=== PATIENT | male | born 1975 | race Asian ===

== ENCOUNTER 2016-09-24 14:18 | Emergency (ER) | payer OTHER ==
[~2016-09-24] VITALS: Ht 177.8 cm; Wt 102.1 kg
[2016-09-24 15:20] VITALS: BP 142/88
--- NOTE | 2016-09-24 15:57 | ED SKIN/ALLERGY COMPLAINT ---
History of Present Illness General Chief Complaint: General Adult Stated Complaint: BACK PAIN CAUSED BY MOLE Source: patient Exam Limitations: no limitations Vital Signs & Intake/Output Vital Signs & Intake/Output Vital Signs Date Time Temp Pulse Resp B/P Pulse O2 O2 Flow FiO2 Ox Delivery Rate 09/24 1522 97 09/24 1520 97.0 103 18 142/88 98 Room Air 09/24 1446 98.7 108 20 160/104 96 Room Air Allergies Coded Allergies: No Known Allergies (09/24/16) Reconcile Medications No Known Home Medications Triage Note: RECEIVED 41 YO MALE PAINFUL MOLE ON LEFT UPPER BACK, HAS SINCE A CHILD BUT HURTING HIM TODAY. Triage Nurses Notes Reviewed? yes Onset: Abrupt Duration: day(s):, constant Timing: recent history Severity: moderate, severe Location: back No Modifying Factors: none HPI: 41-year-old male comes into emergency room for further evaluation of bump on his back that is getting larger and painful. Patient reports that he had a mole as she describes it for many years but recently got painful and enlarged. Denies any other associated symptoms such as fever chills denies any trauma. Denies any other associated symptoms. (MARYBETH HAJI) Past History Travel History Traveled to [place] past 21 day No Medical History Any Pertinent Medical History? see below for history Neurological: NONE EENT: NONE Cardiovascular: hypertension Respiratory: NONE Gastrointestinal: NONE Hepatic: NONE Renal: NONE Musculoskeletal: NONE Psychiatric: NONE Endocrine: NONE Blood Disorders: NONE Cancer(s): NONE Surgical History Surgical History: non-contributory Psychosocial History What is your primary language Portuguese Tobacco Use: Current Daily Use Daily Tobacco Use Amount/Type: => 5 Cigarettes daily Family History Hx Contributory? No (MARYBETH HAJI) Review of Systems Review of Systems Constitutional: Reports: no symptoms. EENTM: Reports: no symptoms. Respiratory: Reports: no symptoms. Cardiovascular: Reports: no symptoms. GI: Reports: no symptoms. Genitourinary: Reports: no symptoms. Musculoskeletal: Reports: no symptoms. Skin: Reports: see HPI. Neurological/Psychological: Reports: no symptoms. Hematologic/Endocrine: Reports: no symptoms. Immunologic/Allergic: Reports: no symptoms. All Other Systems: Reviewed and Negative (MARYBETH HAJI) Physical Exam Physical Exam General Appearance: well developed/nourished, mild distress Head: atraumatic Eyes: Bilateral: normal appearance. Ears, Nose, Throat: normal ENT inspection, hearing grossly normal Neck: normal inspection Respiratory: no respiratory distress Cardiovascular: regular rate/rhythm Back: normal inspection Extremities: normal inspection, normal range of motion, no edema Neurologic/Psych: awake, alert, oriented x 3, normal mood/affect Skin: intact Skin Problem Location: torso Skin Problem Character: large nodule, fluctuant, no erythema, no warmth, Lymphatic: no anterior cervical santos (MARYBETH HAJI) Progress Differential Diagnosis: abscess/cellulitis, allergic reaction, anaphylaxis, contact dermatitis, inclusion cyst Plan of Care: Orders Procedure Date/time Status TRUNK AREA CULTURE 09/24 1608 Active Microbiology 09/24 1550 TRUNK: Culture & Sensitivity - RECD 09/24 1549 TRUNK: Gram Stain - RECD Comments: 09/24/2016 5:47:46 PM Patient clinically looks well. Patient is nontoxic-appearing. Patient is in no apparent distress. Most consistent with inclusion cyst. Follow-up with primary care doctor. Return if any other concerns worsening symptoms. Patient understands that/agrees with plan of care. Follow-up with ground crew lines person back in [place]. (MARYBETH HAJI) Departure Departure Disposition: HOME OR SELF CARE Condition: Stable Clinical Impression Primary Impression: Inclusion cyst Referrals: UNKNOWN (PCP) Additional Instructions: Follow-up with ground crew lines person in [place]. Hot compresses over the area. Return to the emergency room if any concerns worsening symptoms. Please go over all results of today's visit with your primary care doctor. Contact your primary care doctor to let them know you were here in the emergency room. There may be nonspecific findings which may not be related to your visit today here in the emergency room but may require further evaluation and chronic monitoring by your primary care doctor. If you had a laceration today the chance of foreign body always remains. You should follow-up with your primary care doctor for recheck in 3-5 days for a wound check. If you had an x-ray done there is a chance that a fracture could have been missed on initial read and you should follow-up with your primary care doctor for repeat x-rays if symptoms persist. If your blood pressure was elevated here in the emergency room please have rechecked by her primary care doctor within the next 48 hours by your primary care doctor. If you were prescribed a narcotic here in the emergency room or any type of controlled substances you're not allowed to drive while taking this medication or operate any type of heavy machinery. Narcotics can make you feel lightheaded dizziness nausea and can cause constipation. You may need to rock picker a stool softener. Thank you for choosing [facility] emergency room. Please return to the emergency room immediately if you have any other concerns worsening of symptoms. Departure Forms: Customer Survey General Discharge Information Prescriptions: Current Visit Scripts No Known Home Medications (MARYBETH HAJI) PA/PAYROLL TECHNICIAN Co-Sign Statement Statement: ED Attending supervision documentation- [] I saw and evaluated the patient. I have also reviewed all the pertinent lab results and diagnostic results. I agree with the findings and the plan of care as documented in the PA's/PAYROLL TECHNICIAN's documentation. [X] I have reviewed the ED Record and agree with the PA's/PAYROLL TECHNICIAN's documentation. [] Additions or exceptions (if any) to the PAs/PAYROLL TECHNICIAN's note and plan are summarized below: [] (ANNETTE CULP,PERRY Mota) Procedures Incision and Drainage Site: back Blade Size: 11 I & D Procedure: Yes: betadine prep, sterile drapes applied, sterile dressing applied. (MARYBETH HAJI)
== END 2016-09-24 16:01 ==
LOC: ERH 14:18
DX: L72.0 Epidermal cyst (principal)
CPT/HCPCS: 87070